=== PATIENT | female | born 1965 | race Caucasian/White ===

== ENCOUNTER 2018-06-19 16:37 | Emergency (ER) | payer OTHER ==
[~2018-06-19] VITALS: Ht 172.7 cm; Wt 136.1 kg
[2018-06-19 16:40] VITALS: BP 137/81
[2018-06-19 19:18] LABS: APPEARANCE,URINE CLEAR (CLEAR); BILIRUBIN,URINE NEGATIVE (NEGATIVE); BLOOD, URINE 3+ (NEGATIVE); COLOR,URINE YELLOW (YELLOW); LEUKOCYTE ESTERASE ,URINE NEGATIVE (NEGATIVE); NITRITE, URINE NEGATIVE (NEGATIVE); UGLUCOSE NEGATIVE (NEGATIVE)
--- NOTE | 2018-06-19 19:18 | NUR ---
PT TAKEN TO CT FROM [facility]
--- NOTE | 2018-06-19 19:30 | NUR ---
PT RETURN FROM CT TO ER BED 11
--- NOTE | 2018-06-19 19:32 | NUR ---
PT AMBULATED WITH ASSIST INTO BED. CO HEMATURIA SINCE TUESDAY. BEGAN DROPS OF BLOOD THEN PROGRESSED INTO SCOTT BLEEDING WITH URINATION. PT CO 11/25 PAIN TO MIDSECTION BENEATH HER BRA.
[2018-06-19 19:33] LABS: RBC,URINE TOO NUMEROUS TO COUN /HPF (0-5); WBC,URINE 0-5 /HPF (0-5)
[2018-06-19 19:55] LABS: BASOPHILS % (AUTO) 0.4 % (0.0-2.0); EOSINOPHILS # (AUTO) 0.2 K/uL (0-0.4); EOSINOPHILS % (AUTO) 2.5 % (0.0-4.0); HEMATOCRIT 29.9 % (36-48); HEMOGLOBIN 9.3 g/dL (12.0-16.0); LYMPHOCYTES # (AUTO) 1.2 K/uL (2.5-16.5); LYMPHOCYTES % (AUTO) 13.8 % (20.5-51.1); MEAN CORPUSCULAR HEMOGLOBIN 26 pg (27-31); MEAN CORPUSCULAR HGB CONC 31 g/dL (33-37); MEAN CORPUSCULAR VOLUME 83.7 fL (80-94); MONOCYTES # (AUTO) 0.5 K/uL (0.8-1.0); MONOCYTES % (AUTO) 5.4 % (1.7-9.3); NEUTROPHILS % (AUTO) 77.9 % (42.2-75.2); PLATELET COUNT (AUTO) 305 K/uL (140-450); RED BLOOD CELL COUNT(AUTO) 3.57 MIL/uL (4.20-5.40)
[2018-06-19 20:13] LABS: ALBUMIN 3.4 g/dL (3.4-5.0); ANION GAP 13.7 (8-16); CARBON DIOXIDE 26.5 mmol/L (21-32); CREATININE 1.3 mg/dL (0.6-1.3); POTASSIUM 4.2 mmol/L (3.5-5.1); TOTAL BILIRUBIN 0.3 mg/dL (0.0-1.0)
--- NOTE | 2018-06-19 20:43 | NUR ---
Dr. Davidson evaluating patient at bedside.
[2018-06-19] MEDS ORDERED: KETOROLAC 60 MG/2 ML VIAL IM ONE (20:55)
--- NOTE | 2018-06-19 22:01 | NUR ---
Patient discharged with v/s stable. Written and verbal after care instructions given and explained. Patient verbalized understanding. Wheel Chair Assisted with to mcc. All questions addressed prior to discharge. Advised to follow up with PMD.
[2018-06-19 22:02] VITALS: BP 141/77
== END 2018-06-19 22:01 | disposition home or self-care (01) ==
LOC: MED 16:37
DX: R31.9 Hematuria, unspecified (principal); R10.13 Epigastric pain; N28.9 Disorder of kidney and ureter, unspecified; E07.9 Disorder of thyroid, unspecified; Z95.0 Presence of cardiac pacemaker; Z88.2 Allergy status to sulfonamides; Z88.0 Allergy status to penicillin
CPT/HCPCS: 36415; 74176; 80053; 81001; 83690; 85025; 96372; 99284; J1885